=== PATIENT | male | born 1965 | race Caucasian/White ===

== ENCOUNTER 2023-05-29 19:34 | Inpatient (IN) | payer OTHER ==
[2023-05-29 20:27] VITALS: BMI 25.4
[2023-05-29] MEDS ORDERED: chlordiazePOXIDE HCL 25 MG CAPSULE PO PRN (20:46)
[2023-05-29] MEDS ORDERED: guaiFENesin 600 MG TABLET.ER (FP) PO PRN (20:47)
[2023-05-29] MEDS ORDERED: BISMUTH SUBSALICYLATE 524 MG/30 ML PO PRN (20:47)
[2023-05-29] MEDS ORDERED: DICYCLOMINE HCL 10 MG CAPSULE PO PRN (20:47)
[2023-05-29] MEDS ORDERED: IBUPROFEN 400 MG TABLET (FP) PO PRN (20:47)
[2023-05-29] MEDS ORDERED: ONDANSETRON *ODT* 4 MG TABLET SL PRN (20:47)
[2023-05-29] MEDS ORDERED: LOPERAMIDE HCL 2 MG CAPSULE PO PRN (20:47)
[2023-05-29] MEDS ORDERED: BENZOCAINE/MENTHOL (CHLORASEPTIC ) LOZENGE MM PRN (20:47)
[2023-05-29] MEDS ORDERED: MAG HYDROX/AL HYDROX/SIMETH 30 ML UNIT-DOSE CUP PO PRN (20:47)
[2023-05-29] MEDS ORDERED: BENZONATATE 200 MG CAPSULE PO PRN (20:47)
[2023-05-29] MEDS ORDERED: IBUPROFEN 600 MG TABLET (FP) PO PRN (20:47)
[2023-05-29] MEDS ORDERED: P-EPHED 60MG/TRIPROLIDI 2.5MG TABLET PO PRN (20:47)
[2023-05-29] MEDS ORDERED: MAGNESIUM HYDROX 2400MG/30ML ORAL SUSPENSION 30 ML CUP PO PRN (20:47)
[2023-05-29] MEDS ORDERED: ACETAMINOPHEN 325 MG TABLET (FP) PO PRN (20:47)
[2023-05-29] MEDS ORDERED: POLYETHYLENE GLYCOL (HEALTHYLAX) 3350 17 GM PACKET PO PRN (20:47)
[2023-05-29] MEDS ORDERED: TRIMETHOBENZAMIDE HCL 200MG/2ML INJ IM ONE ×2 (20:50→21:02)
[2023-05-29] MEDS: levETIRAcetam 500 MG TABLET (FP) PO SCH (22:30)
[2023-05-29] MEDS: MELATONIN 5 MG TABLETS PO SCH (22:30)
[2023-05-29] MEDS: chlordiazePOXIDE HCL 25 MG CAPSULE PO SCH (22:30)
[2023-05-29] MEDS: THIAMINE HCL 100 MG TABLET (FP) PO SCH (22:32)
[2023-05-29] MEDS: hydrOXYzine PAMOATE 25 MG CAPSULE (FP) PO PRN (22:35)
[2023-05-30] MEDS: chlordiazePOXIDE HCL 25 MG CAPSULE PO SCH ×4 (05:27→22:44)
[2023-05-30] MEDS ORDERED: ESCITALOPRAM OXALATE 10 MG TABLET ONE (09:37)
[2023-05-30] MEDS: PRENATAL VITAMINS W/ FOLIC ACID TABLET (FP) PO SCH (10:19)
[2023-05-30] MEDS: levETIRAcetam 500 MG TABLET (FP) PO SCH ×2 (10:20→22:44)
[2023-05-30] MEDS: ESCITALOPRAM OXALATE 20 MG TABLET PO SCH (10:20)
[2023-05-30 11:07] LABS: HEMOGLOBIN 14.8 GM/dL (11.7-16.9); MCH 32.5 pg (25.7-33.7); MCHC 35.3 g/dl (32.0-35.9); MEAN CELL VOLUME 92.1 fl (80-96); MEAN PLT VOLUME 8.6 fl (7.5-11.1); PLATELET COUNT 241 10^3/uL (134-434); RBC 4.56 M/mm3 (4.00-5.60); RDW 13.7 % (11.9-15.9)
[2023-05-30 11:11] LABS: POTASSIUM 4.9 mmol/L (3.5-5.1)
[2023-05-30 11:12] LABS: CALCIUM 8.2 mg/dL (8.5-10.1)
[2023-05-30 11:14] LABS: ALBUMIN 3.7 g/dl (3.4-5.0); BLOOD UREA NITROGEN 15.8 mg/dL (7-18)
[2023-05-30 11:17] LABS: CREATININE 1.1 mg/dL (0.55-1.3)
[2023-05-30 11:24] LABS: BILIRUBIN,TOTAL 0.6 mg/dL (0.2-1)
[2023-05-30] MEDS: hydrOXYzine PAMOATE 25 MG CAPSULE (FP) PO PRN (22:44)
[2023-05-30] MEDS: THIAMINE HCL 100 MG TABLET (FP) PO SCH (22:44)
[2023-05-30] MEDS: MELATONIN 5 MG TABLETS PO SCH (22:44)
[2023-05-31] MEDS: chlordiazePOXIDE HCL 25 MG CAPSULE PO SCH ×4 (05:24→22:11)
[2023-05-31] MEDS ORDERED: ESCITALOPRAM OXALATE 10 MG TABLET ONE (09:31)
[2023-05-31] MEDS: ESCITALOPRAM OXALATE 20 MG TABLET PO SCH (10:21)
[2023-05-31] MEDS: hydrOXYzine PAMOATE 25 MG CAPSULE (FP) PO PRN ×2 (10:21→22:10)
[2023-05-31] MEDS: METHOCARBAMOL 500 MG TABLET PO PRN (10:21)
[2023-05-31] MEDS: levETIRAcetam 500 MG TABLET (FP) PO SCH ×2 (10:21→22:11)
[2023-05-31] MEDS: PRENATAL VITAMINS W/ FOLIC ACID TABLET (FP) PO SCH (10:21)
[2023-05-31] MEDS: THIAMINE HCL 100 MG TABLET (FP) PO SCH (22:11)
[2023-05-31] MEDS: MELATONIN 5 MG TABLETS PO SCH (22:11)
[2023-06-01] MEDS ORDERED: chlordiazePOXIDE HCL 10 MG CAPSULE PO PRN
[2023-06-01] MEDS: chlordiazePOXIDE HCL 10 MG CAPSULE PO SCH ×4 (05:03→22:03)
[2023-06-01] MEDS ORDERED: ESCITALOPRAM OXALATE 10 MG TABLET ONE (09:08)
[2023-06-01] MEDS: METHOCARBAMOL 500 MG TABLET PO PRN (10:27)
[2023-06-01] MEDS: PRENATAL VITAMINS W/ FOLIC ACID TABLET (FP) PO SCH (10:27)
[2023-06-01] MEDS: ESCITALOPRAM OXALATE 20 MG TABLET PO SCH (10:27)
[2023-06-01] MEDS: levETIRAcetam 500 MG TABLET (FP) PO SCH ×2 (10:27→22:03)
[2023-06-01] MEDS: hydrOXYzine PAMOATE 25 MG CAPSULE (FP) PO PRN ×2 (10:28→22:04)
[2023-06-01] MEDS: THIAMINE HCL 100 MG TABLET (FP) PO SCH (22:03)
[2023-06-01] MEDS: MELATONIN 5 MG TABLETS PO SCH (22:03)
[2023-06-02] MEDS: chlordiazePOXIDE HCL 10 MG CAPSULE PO SCH ×2 (05:20→16:53)
[2023-06-02] MEDS ORDERED: ESCITALOPRAM OXALATE 10 MG TABLET ONE (09:46)
[2023-06-02] MEDS: ESCITALOPRAM OXALATE 20 MG TABLET PO SCH (10:08)
[2023-06-02] MEDS: levETIRAcetam 500 MG TABLET (FP) PO SCH ×2 (10:09→21:58)
[2023-06-02] MEDS: PRENATAL VITAMINS W/ FOLIC ACID TABLET (FP) PO SCH (10:09)
[2023-06-02] MEDS: hydrOXYzine PAMOATE 25 MG CAPSULE (FP) PO PRN ×2 (10:27→21:58)
[2023-06-02] MEDS: THIAMINE HCL 100 MG TABLET (FP) PO SCH (21:58)
[2023-06-02] MEDS: MELATONIN 5 MG TABLETS PO SCH (21:59)
[2023-06-03] MEDS ORDERED: chlordiazePOXIDE HCL 10 MG CAPSULE PO ONE (05:00)
[2023-06-03 09:43] VITALS: BP 121/74; PULSE 85; RESP 18; TEMP 97.1
[2023-06-03] MEDS: PRENATAL VITAMINS W/ FOLIC ACID TABLET (FP) PO SCH (09:57)
[2023-06-03] MEDS: ESCITALOPRAM OXALATE 20 MG TABLET PO SCH (09:57)
== END 2023-06-03 08:35 | disposition home or self-care (01) | DRG 775 ==
LOC: YASAS 19:34 → Y6N 21:22
PROVIDERS: ADMIT Allergy & Immunology; ATTEND Surgery
PROC: HZ2ZZZZ Detoxification Services for Substance Abuse Treatment (ICD-10-PCS; principal; 2023-05-29)
DX: F10.230 Alcohol dependence with withdrawal, uncomplicated (principal); F17.210 Nicotine dependence, cigarettes, uncomplicated; F10.282 Alcohol dependence with alcohol-induced sleep disorder; F32.9 Major depressive disorder, single episode, unspecified; L30.9 Dermatitis, unspecified; M10.9 Gout, unspecified; Z86.69 Personal history of other diseases of the nervous system and sense organs
CPT/HCPCS: 36415; 80053; 85027; 86780; 87635; Q0162